=== PATIENT | male | born 1960 | race Caucasian/White ===

== ENCOUNTER 2018-04-25 13:49 | Emergency (ER) | payer OTHER, SELFPAY ==
[~2018-04-25 13:49] MED LIST: EPINEPHrine 1 MG/10 ML Abboject SYRINGE ONE; Sodium Bicarb 50 MEQ/50 ML Abboject 8.4% SYRINGE ONE; Sodium Chloride 0.9% 1,000 ML BAG ONE
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
== END 2018-04-25 15:35 | disposition expired ==
LOC: MADERS 13:49
DX: T07.XXXA Unspecified multiple injuries, initial encounter (principal); I46.8 Cardiac arrest due to other underlying condition; E78.5 Hyperlipidemia, unspecified; I10 Essential (primary) hypertension; V89.2XXA Person injured in unspecified motor-vehicle accident, traffic, initial encounter
CPT/HCPCS: 51702; 71045; 92950; 96374; 96375; G0390; J0171; J7050